=== PATIENT | male | born 1995 | race Caucasian/White ===

== ENCOUNTER 2017-05-20 10:52 | Emergency (ER) | payer MEDICAID ==
[~2017-05-20] VITALS: Ht 182.9 cm; Wt 127.0 kg
[2017-05-20] MEDS ORDERED: LIDOCAINE HCL/EPINEPHRINE 1%-EPI 1:100,000 30 ML VIAL INFIL ONE (16:45)
[2017-05-20] MEDS ORDERED: LIDOCAINE HCL 1%/EPI 1:200,000 30 ML VIAL MC NR (18:15)
[2017-05-20 20:05] VITALS: BP 138/85
[2017-05-20] MEDS ORDERED: BACITRACIN ZINC OINT UDPKT TOP ONE (21:15)
== END 2017-05-20 21:42 | disposition home or self-care (01) ==
LOC: ER 13:24
DX: S51.811A Laceration without foreign body of right forearm, initial encounter (principal); W19.XXXA Unspecified fall, initial encounter; Y93.89 Activity, other specified; Y92.89 Other specified places as the place of occurrence of the external cause; Y99.8 Other external cause status
CPT/HCPCS: 12002; 73090; 99284; A4217; X7700; Z7610

== ENCOUNTER 2017-05-30 15:46 | Emergency (ER) | payer MEDICAID ==
[~2017-05-30] VITALS: Ht 167.6 cm; Wt 118.0 kg
[2017-05-31] VITALS: BP 116/71
== END 2017-05-31 00:49 | disposition home or self-care (01) ==
LOC: ER 20:42
DX: Z48.02 Encounter for removal of sutures (principal); S51.811D Laceration without foreign body of right forearm, subsequent encounter; W01.110D Fall on same level from slipping, tripping and stumbling with subsequent striking against sharp glass, subsequent encounter
CPT/HCPCS: 99283; Z7610

== ENCOUNTER 2018-02-16 21:44 | Emergency (ER) | payer MEDICAID ==
[~2018-02-16] VITALS: Ht 182.9 cm; Wt 118.0 kg
[2018-02-16 22:10] VITALS: BP 130/87
[2018-02-17] MEDS ORDERED: DIPHENHYDRAMINE 12.5MG/5ML UDC PO ONE (01:30)
[2018-02-17] MEDS ORDERED: ACETAMINOPHEN 325MG TABLET PO ONE (01:30)
== END 2018-02-17 05:02 | disposition home or self-care (01) ==
LOC: ER 21:44
DX: Z51.89 Encounter for other specified aftercare (principal)
CPT/HCPCS: 29505; 99283; Q0163

== ENCOUNTER 2021-12-11 18:48 | Emergency (ER) | payer MEDICAID ==
[~2021-12-11] VITALS: Ht 182.9 cm; Wt 141.0 kg
[2021-12-12] MEDS ORDERED: BACITRACIN ZINC OINT UDPKT TOP ONE
[2021-12-12 00:22] VITALS: BP 148/92
== END 2021-12-12 00:22 | disposition home or self-care (01) ==
LOC: ER 18:48
DX: Z48.00 Encounter for change or removal of nonsurgical wound dressing (principal); S61.411D Laceration without foreign body of right hand, subsequent encounter; X58.XXXD Exposure to other specified factors, subsequent encounter; Z98.890 Other specified postprocedural states
CPT/HCPCS: 99281

== ENCOUNTER 2023-04-10 22:21 | Emergency (ER) | payer MEDICAID ==
[~2023-04-10] VITALS: Ht 182.9 cm; Wt 136.0 kg
[2023-04-10 23:04] VITALS: BP 162/91; O2SAT 98
[2023-04-11 02:20] LABS: BASOPHILS % 0.6 % (0.0-2.0); EOSINOPHILS % 1.1 % (0.0-5.0); HEMATOCRIT. 45.1 % (42.0-52.0); HEMOGLOBIN. 15.2 g/dL (14.0-18.0); LYMPHOCYTES % 32.4 % (20.0-50.0); MEAN CORPUSCULAR HEMOGLOBIN 28.9 pg (28.0-32.0); MEAN CORPUSCULAR HGB CONC 33.7 g/dL (31.0-37.0); MEAN CORPUSCULAR VOLUME 85.7 fL (80.0-94.0); MEAN PLATELET VOLUME 8.2 fl (7.4-10.4); MONOCYTES % 8.2 % (2.0-8.0); NEUTROPHILS % 57.7 % (40.0-76.0); PLATELET 246 x1000/uL (130-400); RED BLOOD CELL COUNT 5.26 mill/uL (4.7-6.1); RED CELL DISTRIBUTION WIDTH 13.8 % (11.6-14.6); WHITE BLOOD COUNT 8.9 x1000/uL (4.5-11.0)
[2023-04-11 02:26] LABS: CALCIUM 8.7 mg/dL (8.5-10.1); CHLORIDE 107 mEq/L (98-107); INDEX HEMOLYSI 1 (1-3); INDEX ICTERIC 1 (1-4); INDEX LIPEMIC 1 (1-3); POTASSIUM 4.4 mEq/L (3.5-5.1); SODIUM 137 mEq/L (136-145)
[2023-04-11 02:31] LABS: CARBON DIOXIDE 27 mEq/L (21-32); CREATININE 0.9 mg/dL (0.6-1.3); GLUCOSE 103 mg/dL (70-105); UREA NITROGEN BLOOD 11 mg/dL (7-21); URIC ACID 5.6 mg/dL (2.6-7.2)
[2023-04-11] MEDS ORDERED: IBUP-2030 MT (06:22)
[2023-04-11 06:37] VITALS: PULSE 81; RESP 18; TEMP 97.9
== END 2023-04-11 06:40 | disposition home or self-care (01) ==
LOC: ER 22:21
DX: M25.561 Pain in right knee (principal); M79.10 Myalgia, unspecified site; M79.651 Pain in right thigh
CPT/HCPCS: 99284; 80048; 84550; 85025; 36415; 93971; 73562; 76881; Z7610

== ENCOUNTER 2024-10-06 11:27 | Emergency (ER) | payer MEDICAID ==
[~2024-10-06] VITALS: Ht 182.9 cm; Wt 140.6 kg
[~2024-10-06 11:27] MED LIST: IBUP-2030 MT
[2024-10-06 11:43] VITALS: O2SAT 98
[2024-10-06] MEDS ORDERED: AMOX-494 PO (12:12)
[2024-10-06] MEDS ORDERED: IBUP-2029 PO (12:12)
[2024-10-06 13:00] VITALS: TEMP 37; O2SAT 99
[2024-10-06 13:01] VITALS: BP 131/85; PULSE 83; RESP 16
[2024-10-06] MEDS: KETOROLAC 15MG/ML VIAL IM ONE (13:01)
== END 2024-10-06 13:03 | disposition home or self-care (01) ==
LOC: ER 11:27
DX: K08.89 Other specified disorders of teeth and supporting structures (principal); F10.90 Alcohol use, unspecified, uncomplicated; Z79.1 Long term (current) use of non-steroidal anti-inflammatories (NSAID); Y90.9 Presence of alcohol in blood, level not specified
CPT/HCPCS: 99283; 96372; J1885